=== PATIENT | male | born 1970 | race Hispanic/Latino ===

== ENCOUNTER 2025-02-12 06:04 | Emergency (ER) | payer OTHER ==
[~2025-02-12] VITALS: Ht 160 cm; Wt 81.6 kg
--- NOTE | 2025-02-12 06:17 | ERN ---
ED Note History of Present Illness Stated Complaint: COUGH, SOB ONSET THIS AM Chief Complaint: Shortness of Breath Time Seen by MD: 06:11 Dictation: Patient comes in with complaint of a sense of dyspnea. Woke up this morning around 4:00 a.m.. Patient had similar episode previous and was seen at [facility] and then referred to cardiology. He had some initial evaluation is pending further evaluation. He is on high cholesterol medicine. He was recently started on Singulair and a aspirin. He states he wonders maybe got a bit worked up and anxious because of what he has been going through [place] recent [place] serum visits and having Cardiology eval. Allergies: Coded Allergies: No Allergy Information Available (Unverified Allergy, Unknown, 02/12/25) Review of System Dictation Ten systems reviewed and negative except as noted in HPI Initial Vital Sign VS Vital Signs Date Time Temp Pulse Resp B/P (MAP) Pulse Ox O2 Delivery O2 Flow Rate FiO2 02/12/25 06:06 98.4 84 17 141/84 96 Room Air 0 02/12/25 08:22 21 Physical Exam Dictation GEN: non toxic, NAD HEENT: atrumatic, PERRL, EOMI, conjunctivae normal NECK: Soft supple nontender Heart RRR, no murmurs Chest: No deformity Lungs: Lungs clear to auscultation Ab: Soft nondistended nontender Back: No midline step-offs. No gross deformity. No CVA tenderness : m/s: Moving all four extremities. No gross deformity Neuro: CN 2-12 intact. Moving all four extremities. Psych: Cooperative Results (Laboratory/Radiology) Laboratory/Radiology Laboratory Tests Test 02/12/25 06:35 02/12/25 08:54 White Blood Count 7.0 K/uL (4.8-10.8) Red Blood Count 4.59 MIL/uL (4.50-6.20) Hemoglobin 12.3 g/dL (14.0-18.0) L Hematocrit 37.7 % (42-54) L Mean Corpuscular Volume 82.1 fL (79-99) Mean Corpuscular Hemoglobin 26.8 pg (27.0-33.0) L Mean Corpuscular Hemoglobin Concent 32.6 g/dL (32.0-36.0) Red Cell Distribution Width 13.6 % (11.0-15.5) Platelet Count 231 K/uL (130-400) Mean Platelet Volume 11.1 fL (7.5-10.5) H Immature Granulocyte % (Auto) 0.4 % (0-1) Neutrophils (%) (Auto) 63.9 % (40.0-77.0) Lymphocytes (%) (Auto) 24.3 % (21.0-51.0) Monocytes (%) (Auto) 8.1 % (3.0-13.0) Eosinophils (%) (Auto) 2.6 % (0.0-8.0) Basophils (%) (Auto) 0.7 % (0.0-5.0) Neutrophils # (Auto) 4.5 K/uL (1.8-7.7) Lymphocytes # (Auto) 1.7 K/uL (1.0-4.8) Monocytes # (Auto) 0.6 K/uL (0.1-1.0) Eosinophils # (Auto) 0.18 K/uL (0.00-0.70) Basophils # (Auto) 0.05 K/uL (0.00-0.20) Absolute Immature Granulocyte (auto 0.03 K/uL (0-1) Nucleated Red Blood Cells 0.0 % (0.0-0.19) Sodium Level 141 mmol/L (136-145) Potassium Level 3.3 mmol/L (3.5-5.1) L Chloride Level 104 mmol/L (101-111) Carbon Dioxide Level 32 mmol/L (21-32) Blood Urea Nitrogen 29 mg/dL (7-18) H Creatinine 1.1 mg/dL (0.5-1.3) Glomerular Filtration Rate Calc 81 mL/min (>90) Random Glucose 116 mg/dL (70-105) H Total Calcium 8.8 mg/dL (8.5-10.1) Total Bilirubin 0.3 mg/dL (0.2-1.0) Aspartate Amino Transf (AST/SGOT) 17 U/L (10-37) Alanine Aminotransferase (ALT/SGPT) 32 U/L (12-78) Alkaline Phosphatase 99 U/L (50-136) Troponin I High Sensitivity < 4 ng/L (4-75) L 4 ng/L (4-75) Total Protein 7.8 g/dL (6.0-8.3) Albumin 4.0 g/dL (3.5-5.0) X-RAY Comment: [facility] [address] [place] [address] IMAGING REPORT Signed PATIENT: SEGUNDO WALKER MR#: [id number] : 1970 SEX: M AGE: 54 LOCATION: [facility] ORDER 6 STATUS: REG ER REPORT#: [id number] SERVICE 4 REASON: cp ORDERING PHYSICIAN: ROHIT KEMP MD PROCEDURE: CXR1VW - CHEST 1VW EXAM: CR Chest, 1 View. CLINICAL HISTORY: cp COMPARISON: None provided. FINDINGS: LUNGS: The lungs show no infiltrate or other acute finding. PLEURAL SPACES: No pleural effusion or pneumothorax. MEDIASTINUM: Cardiac size and mediastinal contours within normal limits. BONES: No aggressive appearing osseous lesion seen. IMPRESSION: No acute cardiopulmonary pathology is evident. /[place] DICTATED BY: LENARD RENEE MD DATE: 02/12/25850 ELECTRONICALLY SIGNED BY: LENARD RENEE MD DATE: 02/12/25850 ED Course ED Course Orders Procedure Category Date Status Time Cbc With Differential LAB 02/12/25 Complete 06:15 Comprehensive LAB 02/12/25 Complete Metabolic Panel 06:15 Troponin I High LAB 02/12/25 Complete Sensitivity 06:15 12 Lead Ekg Tracing- EKG 02/12/25 Complete Technical 06:15 Chest 1vw RAD 02/12/25 Resulted 06:15 Troponin I High LAB 02/12/25 Complete Sensitivity 07:57 Potassium Bicarb/Cit PHA 02/12/25 In Process Ac 25meq (K-Lyte Ta 10:30 Potassium Bicarb/Cit PHA 02/12/25 Complete Ac 25meq (K-Lyte Ta 10:16 Current Medications Medications (Trade) Dose Ordered Sig/To Route PRN Reason Start Time Stop Time Status Last Admin Dose Admin Potassium Bicarbonate (K-Lyte Tablet Eff 25 Meq Tablet.eff) 25 meq STK-MED ONCE .ROUTE 10/26/25 10:16 02/12/25 10:16 DC 02/12/25 10:17 Potassium Bicarbonate (K-Lyte Tablet Eff 25 Meq Tablet.eff) 50 meq ONCE ONCE PO 02/12/25 10:30 02/12/25 10:31 Vital Signs Date Time Temp Pulse Resp B/P (MAP) Pulse Ox O2 Delivery O2 Flow Rate FiO2 02/12/25 08:22 98.4 79 11 112/68 100 Room Air* 0 21 02/12/25 06:06 98.4 84 17 141/84 96 Room Air 0 HEART Score Response (Comments) Value History: Low suspicion (0) 0 EKG: Repolarization changes 1 Age: 45-65yrs (+1) 1 Risk Factors: 1-2 risk factors (+1) 1 Total 3 Medical Decision Making MDM Multiple differentials considered Patient appears comfortable here. We will do labs and EKG. Continue to follow up with Cardiology. Patient care transitioned to Dr. Schmidt pending completion of evaluation and final dispo, likely will be unremakrable and I elmer pt being able to be discharged home MDM: DIFFERENTIAL DIAGNOSIS: HISTORY OF GERD, NSTEMI, STEMI, RATIONALE: TESTS CONSIDERED AND ORDERED SECONDARY TO SHARED DECISION MAKING INCLUDE: PREVIOUS OUTSIDE RECORDS REVIEWED: OLD ER VISITS. RISK OF COMPLICATION AND/OR MORBIDITY OR MORTALITY OF PATIENT MANAGEMENT: NONE MEDICATIONS-PER MEDICATION RECONCILIATION NEED FOR HOSPITALIZATION: PATIENT DOES NOT MEET CRITERIA FOR HOSPITALIZATION. NEED FOR EMERGENCY MAJOR/MINOR SURGERY: NO PATIENT IS A 64-YEAR-OLD GENTLEMAN COMING IN TO BE EVALUATED DUE TO HAVING CHEST DISCOMFORT AT 3:00 A.M.. PER PATIENT THIS IS THE 2ND TIME THIS HAS HAPPENED HE WAS EVALUATED AT ANOTHER HOSPITAL WAS DISCHARGED WITH MEDICATION FOR GASTRITIS. HE STATES HE JUST STARTED TAKING THAT MEDICINE THROUGHOUT ER VISIT PATIENT STATES THAT HE HAS BEEN STABLE NO CHEST DISCOMFORT. LABORATORY WORKUP POSITIVE FOR HYPOKALEMIA WHICH WAS REPLACED. I DID ADVISED HIM APPROPRIATE FOLLOW UP WITH PCP AND/OR PAINT DEPARTMENT SUPERVISOR FOR STRESS TEST TO BE PERFORMED. I ALSO ADVISED HIM OF THE CHEST PAIN RESURFACE SISTER SEEK IMMEDIATE HELP WITH THE NEAREST ER OR WITH PCP. Procedure Procedure Dictation: EKG Sinus rhythm 83 NE 188 QRS of 149 QTC of 491 normal axis QRS complexes wide consistent with right bundle branch block pattern STT wave segments otherwise unremarkable. Interpretation abnormal DX & DISP Disposition: Discharge Departure Impression: Primary Impression: Dyspnea Additional Impression: GERD (gastroesophageal reflux disease) Condition: Stable Scripts Mag Hydrox/Al Hydrox/Simeth (Maalox Maximum Strength Susp) 400 Mg-400 Mg-40 Mg/5 Ml Oral.susp 20 ML PO BID for 5 Days, #355 ML 0 Refills Prov: DANIELLE SCHMIDT MD 02/12/25 Additional Instructions: YOU HAVE BEEN REVIEWED IN THE EMERGENCY DEPARTMENT AT [facility] AFTER PRESENTING WITH CHEST PAIN. AFTER CONSIDERING YOUR HISTORY, YOUR RISK FACTORS, YOUR EKG AND YOUR BLOOD TEST TROPONINS, HAVE BEEN FOUND TO BE AT VERY LOW RISK LESS THAN (1 IN 100) OF HAVING A MAJOR ADVERSE CARDIAC EVENT (LIKE HEART ATTACK) IN THE NEAR FUTURE. IN THE " LOW RISK" GROUP, THE RISKS OF DOING FURTHER TESTS AND TREATMENT THE INPATIENT OUTWEIGHS THE BENEFITS. IN MANY PATIENTS IN THE LOW RISK GROUP FOR THE TEST OF ANY SORT OR UNNECESSARY, HOWEVER HE SHOULD DISCUSS THIS FURTHER WITH HIS GENERAL PRACTITIONER WHO WILL UNDERSTAND THE MEDICAL AND PERSONAL BACKGROUNDS BETTER. BECAUSE WE HAVE NEVER DECLARED YOU" NO RISK" WE WOULD SUGGEST. 1 RETURNING FOR MEDICAL REVIEW IF YOU HAVE FURTHER EPISODES OF CHEST PAIN/ARM PAIN OR OTHER CONCERNING SYMPTOMS LIKE DIZZINESS, COLLAPSE, PALPITATIONS OR SHORTNESS OF BREATH. 2. FOLLOWING UP WITH YOUR LOCAL DOCTOR WHO WILL CONSIDER THE NEED FOR FURTHER TESTING AND WILL ALSO ENSURE THAT ANY MODIFIABLE RISK FACTORS YOU MAY HAVE FOR HEART DISEASE ARE OPTIMALLY MANAGED. PATIENT WILL BE DISCHARGED IN STABLE CONDITION AT THE MOMENT DISCHARGE PATIENT STATES , NO CHEST PAIN Referrals: NONE (PCP) ROBB LOVE MD, LUIS A MD Time of Disposition: 10:26 ROHTI KEMP MD Feb 12, 2025 06:17 DANIELLE SCHMIDT MD Feb 12, 2025 09:32
--- NOTE | 2025-02-12 06:31 | EKG ---
[facility] Test Date: 2025-02-12 Test Time: 06:24:37 Pat Name: SEGUNDO WALKER Department: ED Room: Gender: M [employer]: [id number] : 1970 Requested By: ROHIT KEMP Order Number: [id number] Reading MD: Lynne Dalton Measurements Intervals [place] Rate: 83 P: 43 MN: 188 QRS: 18 QRSD: 149 T: -10 QT: 417 QTc: 491 Interpretive Statements Sinus rhythm Right bundle branch block No previous ECG available for comparison Electronically Signed On 02-12-2025 16:22:51 CDT by Lynne Dalton Please click the below link to view image of tracing.
[2025-02-12 07:34] LABS: IMMATURE GRANULOCYTE ABSOLUTE 0.03 K/uL (0-1); NUCLEATED RED BLOOD CELLS 0.0 % (0.0-0.19); PLATELET COUNT (AUTO) 231 K/uL (130-400); RED BLOOD CELL COUNT(AUTO) 4.59 MIL/uL (4.50-6.20); RED CELL DISTRIBUTION WIDTH 13.6 % (11.0-15.5); WHITE BLOOD COUNT (AUTO) 7.0 K/uL (4.8-10.8)
[2025-02-12 07:49] LABS: ASPARTATE AMINOTRANSFERASE 17.0 U/L (10-37); CREATININE 1.1 mg/dL (0.5-1.3); GLOMERULAR FILTR. RATE CALC 81.0 mL/min (>90); GLUCOSE,RANDOM 116.0 mg/dL (70-105); SODIUM SERUM 141.0 mmol/L (136-145); TOTAL PROTEIN, SERUM 7.8 g/dL (6.0-8.3); UREA NITROGEN, BLOOD 29.0 mg/dL (7-18)
--- NOTE | 2025-02-12 07:51 | HMCIMG ---
EXAM: CR Chest, 1 View. CLINICAL HISTORY: cp COMPARISON: None provided. FINDINGS: LUNGS: The lungs show no infiltrate or other acute finding. PLEURAL SPACES: No pleural effusion or pneumothorax. MEDIASTINUM: Cardiac size and mediastinal contours within normal limits. BONES: No aggressive appearing osseous lesion seen. IMPRESSION: No acute cardiopulmonary pathology is evident. /[place]
[2025-02-12] MEDS ORDERED: MAG-55 PO (10:27)
[2025-02-12 10:35] VITALS: BP 118/68; PULSE 66; RESP 18; TEMP 98.5; O2SAT 96
--- NOTE | 2025-02-12 10:39 | NUR ---
PT STABLE NO DISTRESS VITALS WNL PT HAS NO C/O CHEST PAIN NOW, PT GIVEN INSTRUCTIONS FOR HOME RX SENT TO PHARMACY WILL START TODAY. PT IV REMOVED CATHETER INTACT. PT DRIVE
== END 2025-02-12 10:47 | disposition home or self-care (01) ==
LOC: EDH 06:04
DX: K21.9 Gastro-esophageal reflux disease without esophagitis (principal); R06.00 Dyspnea, unspecified
CPT/HCPCS: 36415; 71045; 80053; 84484; 85025; 93005; 99285